=== PATIENT | female | born 1985 | race Caucasian/White ===

== ENCOUNTER 2018-12-01 19:09 | Emergency (ER) | payer MEDICAID ==
[~2018-12-01] VITALS: Ht 172.7 cm; Wt 81.6 kg
--- NOTE | 2018-12-01 19:30 | NUR ---
URINE COLLECTED AND SENT TO LAB
--- NOTE | 2018-12-01 19:30 | NUR ---
PT PRESENTED TO THE ER WITH A C/O VAGINAL BLEEDING X 2 DAYS. DARK RED BLOOD NOTED. PT IS AND LMP IS UNKNOWN. PT AMBULATED TO ER 16 WITH A STEADY GAIT. URINE SAMPLE WAS SENT TO LAB.
--- NOTE | 2018-12-01 19:45 | NUR ---
US TECH IS AT THE BEDSIDE.
[2018-12-01 19:53] LABS: APPEARANCE,URINE CLEAR (CLEAR); COLOR,URINE YELLOW (YELLOW); PH,URINE 5.5 (5.0-8.0)
[2018-12-01 19:54] LABS: BILIRUBIN,URINE NEGATIVE (NEGATIVE); BLOOD, URINE LARGE Ery/uL (NEGATIVE); KETONES,URINE TRACE (NEGATIVE); LEUKOCYTE ESTERASE ,URINE NEGATIVE (NEGATIVE); NITRITE, URINE NEGATIVE (NEGATIVE); PROTEIN,URINE 30 mg/dl (NEGATIVE); UGLUCOSE NEGATIVE (NEGATIVE); UROBILINOGEN,URINE 0.2 EU/dL (0.2)
[2018-12-01 19:58] LABS: RBC,URINE 21-50 /HPF (0-2)
[2018-12-01 19:59] LABS: BACTERIA,URINE Rare /HPF (None Seen); SQUAMOUS EPITHELIAL CELL,UR Few /HPF (None Seen); WBC,URINE NONE SEEN /HPF (0-3)
--- NOTE | 2018-12-01 20:02 | NUR ---
US IS FINISHED AT THE BEDSIDE.
[2018-12-01 20:30] LABS: HEMATOCRIT 36 % (33-45); HEMOGLOBIN 12.8 g/dL (11.5-14.8); MEAN CORPUSCULAR HGB CONC 36 g/dl (31.0-36.0); MEAN CORPUSCULAR VOLUME 84 fL (82-100); MONOCYTES % (AUTO) 6.9 % (2.0-12.0); NEUTROPHILS % (AUTO) 58.6 % (43.0-81.0); PLATELET COUNT (AUTO) 230 /CMM (150-450); RED BLOOD CELL COUNT(AUTO) 4.31 MIL/uL (4.0-5.2); WHITE BLOOD COUNT (AUTO) 8.8 K/uL (4.3-11.0)
[2018-12-01 20:31] LABS: BASOPHILS # (AUTO) 0.1 /CMM (0.0-0.2); BASOPHILS % (AUTO) 1.1 % (0.0-2.0); EOSINOPHILS % (AUTO) 2.4 % (0.0-6.0); LYMPHOCYTES # (AUTO) 2.7 /CMM (0.8-4.8); MONOCYTES # (AUTO) 0.6 /CMM (0.1-1.30); NEUTROPHILS # (AUTO) 5.1 /CMM (1.8-8.9)
--- NOTE | 2018-12-01 20:34 | NUR ---
WAITING FOR LAB RESULTS.
[2018-12-01 21:12] LABS: CALCIUM, SERUM 8.6 mg/dL (8.5-10.1); POTASSIUM 3.7 mmol/L (3.5-5.1)
[2018-12-01 21:13] LABS: ALBUMIN 3.4 g/dL (3.4-5.0); BILIRUBIN,TOTAL 0.4 mg/dL (0.2-1.0); CREATININE 0.9 mg/dL (0.6-1.3); TOTAL PROTEIN, SERUM 7.4 g/dL (6.4-8.2)
--- NOTE | 2018-12-01 21:37 | NUR ---
PT REC'D A COPY OF ALL RESULTS. PT AMBULATED OUT WITH A STEADY GAIT. PT WANTS TO GET THE RHOGAM SHOT WITH HER ORTHOPAEDIC NURSE. DR MONTALVO IS AWARE. VSS. PT'S MOTHER IS DRIVING THE PT HOME. Patient discharged to home in stable condition. Written and verbal after care instructions given. Patient verbalizes understanding of instruction.
[2018-12-01 21:39] VITALS: BP 127/87
== END 2018-12-01 21:40 | disposition home or self-care (01) ==
LOC: ER 19:15
DX: O02.1 Missed abortion (principal); Z98.890 Other specified postprocedural states
CPT/HCPCS: 36415; 76805-TC; 80048-TC; 80076-TC; 81000-TC; 84702-TC; 84703-TC; 85025-TC

== ENCOUNTER 2018-12-02 17:56 | Emergency (ER) | payer MEDICAID ==
[~2018-12-02] VITALS: Ht 172.7 cm; Wt 89.8 kg
--- NOTE | 2018-12-02 18:00 | NUR ---
CAME BACK FOR [facility] ADMINISTRATION, SEEN YESTERDAY FOR VAGINAL BLEEDING. TO ER BED 16, HOOKED TO MONITOR, PROVIDED W WARM BLANKET, AWAITING MD RILEY
--- NOTE | 2018-12-02 18:22 | NUR ---
GIOVANNI APODACA AT BEDSIDE
--- NOTE | 2018-12-02 20:41 | NUR ---
RHOGAM ADMINISTERED. BLOOD CONCENT SIGNED BY PTAshwin MAYNARD AWARE
[2018-12-02 20:48] VITALS: BP 132/82
--- NOTE | 2018-12-02 20:48 | NUR ---
Patient discharged to home in stable condition. Written and verbal after care instructions given. Patient verbalizes understanding of instruction.
== END 2018-12-02 20:49 | disposition home or self-care (01) ==
LOC: ER 17:56
DX: O36.0910 Maternal care for other rhesus isoimmunization, first trimester, not applicable or unspecified (principal); Z98.890 Other specified postprocedural states; Z3A.09 9 weeks gestation of pregnancy
CPT/HCPCS: 36415; 99283; J2790; P9016-BL

== ENCOUNTER 2018-12-03 00:20 | Emergency (ER) | payer MEDICAID ==
[~2018-12-03] VITALS: Ht 172.7 cm; Wt 85.3 kg
[2018-12-03] MEDS ORDERED: IV NS 0.9% 500 ML BAG IV ONE ×2 (01:00→02:00)
[2018-12-03 01:13] LABS: BASOPHILS % (AUTO) 0.3 % (0.0-2.0); EOSINOPHILS % (AUTO) 2.1 % (0.0-6.0); HEMATOCRIT 33 % (33-45); HEMOGLOBIN 11.5 g/dL (11.5-14.8); LYMPHOCYTES # (AUTO) 3.7 /CMM (0.8-4.8); LYMPHOCYTES % (AUTO) 32.4 % (20.0-44.0); MEAN CORPUSCULAR HGB CONC 35 g/dl (31.0-36.0); MEAN CORPUSCULAR VOLUME 83 fL (82-100); MONOCYTES # (AUTO) 0.7 /CMM (0.1-1.30); MONOCYTES % (AUTO) 6.4 % (2.0-12.0); NEUTROPHILS # (AUTO) 6.7 /CMM (1.8-8.9); NEUTROPHILS % (AUTO) 58.8 % (43.0-81.0); PLATELET COUNT (AUTO) 262 /CMM (150-450); RED BLOOD CELL COUNT(AUTO) 3.92 MIL/uL (4.0-5.2); WHITE BLOOD COUNT (AUTO) 11.4 K/uL (4.3-11.0)
--- NOTE | 2018-12-03 01:15 | NUR ---
PT BIBRA. C/O "HAVING ABD PAIN AND VAGINAL BLEEDING" -SOB NOTED. PT DIZZY. ON MONITOR. AOX4. AWAKE AND RESPONSIVE AT THIS TIME. WILL CONTINUE TO MONITOR.
[2018-12-03 01:27] LABS: CALCIUM, SERUM 8.8 mg/dL (8.5-10.1); CREATININE 0.7 mg/dL (0.6-1.3); POTASSIUM 3.9 mmol/L (3.5-5.1)
[2018-12-03 01:54] LABS: ALBUMIN 3.1 g/dL (3.4-5.0); BILIRUBIN,TOTAL 0.2 mg/dL (0.2-1.0); TOTAL PROTEIN, SERUM 6.7 g/dL (6.4-8.2)
[2018-12-03 02:48] VITALS: BP 127/88
== END 2018-12-03 02:49 | disposition home or self-care (01) ==
LOC: ER 00:22
DX: O03.9 Complete or unspecified spontaneous abortion without complication (principal); Z98.890 Other specified postprocedural states
CPT/HCPCS: 36415; 80048; 80076; 84702; 85025; 85240; 85730; 99283; J7040 ×2